=== PATIENT | male | born 1945 | race Caucasian/White ===

== ENCOUNTER 2016-12-01 02:33 | Observation (INO) ==
[2016-12-01] MEDS ORDERED: Ipratropium/Albuterol Neb 3 ML IH ONE ×2 (03:33→09:46)
--- NOTE | 2016-12-01 03:34 | Emergency Department Note ---
Disposition Clinical Impression: Pneumonia Qualifiers: Pneumonia type: due to unspecified organism Laterality: right Lung location: middle lobe of lung Qualified Code(s): J18.1 - Lobar pneumonia, unspecified organism Sepsis Qualifiers: Sepsis type: sepsis due to unspecified organism Qualified Code(s): A41.9 - Sepsis, unspecified organism Disposition: Admitted As Inpatient Condition: Good Time of Disposition: 06:13 SOB HPI - General Chief Complaint: ED Upper Respiratory Infection Stated Complaint: COUGH Time Seen by Provider: 12/01/16 03:14 Source: patient, family Mode of arrival: ambulatory Limitations: no limitations Nursing Notes Reviewed: Yes Vital Signs Reviewed: Yes - History of Present Illness 71-year-old male with past medical history of hypertension and diabetes presents with abrupt onset of cough and fever over the last 8 hours. His is sick with similar symptoms. This is associated with shortness of breath, nausea, body aches, and malaise. He has subjective fever and chills. He been hospitalized. He does not reside in prison. He denies any confusion, headache, stiff neck, chest pain, abdominal pain, change in urination or bowel movement, rashes or edema. - Related Data Home Medications Medication Instructions Recorded Confirmed Amlodipine Besylate 10 mg PO DAILY 09/22/16 12/01/16 Aspirin 81 mg PO DAILY 09/22/16 12/01/16 Atenolol 100 mg PO DAILY 09/22/16 12/01/16 Diazepam [Valium] 2.5 - 5 mg PO DAILY PRN 09/22/16 12/01/16 Finasteride [Proscar] 5 mg PO DAILY 09/22/16 12/01/16 Folic Acid/Multivit-Min/Lutein 1 tab PO DAILY 09/22/16 12/01/16 [Centrum Silver Chewable Tablet] Hydrochlorothiazide 25 mg PO DAILY 09/22/16 12/01/16 Omeprazole [PriLOSEC] 20 mg PO DAILY 09/22/16 12/01/16 Pravastatin Sodium [Pravachol] 40 mg PO DAILY 09/22/16 12/01/16 Ropinirole [Requip] 1 mg PO HS 09/22/16 12/01/16 Previous Rx's Medication Instructions Recorded Benzonatate [Tessalon] 200 mg PO TID PRN #60 capsule 02/27/17 GuaiFENesin ER [Mucinex] 1,200 mg PO BID #120 tbbp.12hr 12/04/16 GuaiFENesin/Codeine [ROBITUSSIN 10 ml PO Q6HR PRN #200 ml 12/04/16 w/CODEINE] Ipratropium/Albuterol Neb [Duoneb] 3 ml IH [id number] #100 inhsol 12/04/16 Levofloxacin [Levaquin] 750 mg PO DAILY #5 tablet 12/04/16 Metformin [Glucophage] 500 mg PO BID #0 12/04/16 Allergies Allergy/AdvReac Type Severity Reaction Status Date / Time lisinopril AdvReac Cough Verified 12/01/16 02:37 losartan AdvReac Cough Verified 12/01/16 02:37 All systems ED: reviewed and negative except as stated. Past Medical History - Past Medical History Attestation: Yes The following information was validated with the patient. Source: patient Medical history: Reports: arthritis, diabetes, GERD, hyperlipidemia, hypertension Surgical history: Reports: orthopedic, other, other Psychiatric history: Reports: no psych history - Social History Smoking Status: Never smoker Alcohol use: Reports: none Drug use: Reports: none Physical Exam - Head Head exam: atraumatic, normocephalic, normal inspection - Eye Eye exam: Present: normal appearance, PERRL, EOMI - ENT ENT exam: normal exam, normal oropharynx, mucous membranes moist - Neck Neck exam: Present: normal inspection, full ROM, trachea midline - Chest Chest inspection: Present: normal inspection, symmetric chest wall rise - Respiratory There is mild in the extremities bilaterally. There are rales at the right base Cardiovascular Cardiovascular exam: Present: regular rate, normal rhythm, normal heart sounds - Abdominal Exam Abdominal exam: Present: soft, Non-Tender. Absent: tenderness, distention, guarding, rebound, rigidity - Extremities Exam Extremities exam: Present: normal inspection, full ROM - Expanded Lower Extremity Exam Hip/Pelvis exam: Present: normal inspection, full ROM - Back Exam Back exam: Present: normal inspection, full ROM. Absent: tenderness, CVA tenderness (R), CVA tenderness (L) - Neurological Exam Neurological exam: Present: alert, oriented X3, CN II-XII intact - Psychiatric Psychiatric exam: Present: normal affect, normal mood - Skin Skin exam: Present: warm, dry, intact, normal color - General Limitations: no limitations General appearance: alert, in no apparent distress Course - Reevaluation(s) Reevaluation #1: Patient had right lower lobe possible infiltrate on chest x-ray. We obtained labs which were essentially normal without acidosis, lactic acidosis, or leukocytosis. Patient was feeling well and requests to go home. On my reassessment his oxygen saturation was 93% and respiratory rate was 16. We ambulated the patient to see how he would do and he became hypoxic to 81% after ambulating about 30 feet in the emergency department. He had mild shortness of breath without chest pain with that. Given that he meets SIRS criteria and has pneumonia he is receiving 20 mL/kg IVF and Levaquin and Rocephin for antibiotics. Reevaluation #2: Accepted by Dr. Prakash to hospitalist. Time: 06:12 Vital Signs Temperature 101.3 F H 12/01/16 02:34 Pulse Rate 67 12/01/16 02:34 Respiratory Rate 20 12/01/16 02:34 Blood Pressure 133/61 12/01/16 02:34 O2 Sat by Pulse Oximetry 93 L 12/01/16 02:34 Temperature 97.4 F L 12/04/16 11:00 Pulse Rate 54 12/04/16 11:00 Respiratory Rate 18 12/04/16 11:47 Blood Pressure 128/77 12/04/16 11:00 O2 Sat by Pulse Oximetry 96 12/04/16 11:47 Oxygen Delivery Oxygen Delivery Nasal Cannula Shortness of Breath/Dyspnea - Lab Data Result diagrams: 12/04/16 05:33 12/04/16 05:33 Lab Results 12/01/16 12/01/16 12/01/16 Range/Units 05:06 05:06 05:06 WBC 10.0 (4.3-11.1) K/mcL RBC 4.63 (4.19-5.50) M/mcL Hgb 12.5 L (12.9-16.9) g/dL Hct 37.9 (37.5-50.1) % MCV 81.9 L (83.0-100.0) fL MCH 27.0 L (28.0-33.3) pg MCHC 33.0 (31.6-35.5) g/dL RDW 13.5 (11.5-14.5) % Plt Count 116 L (140-400) K/mcL MPV 10.5 (9.4-12.4) fL Immature Gran % 0.5 (0-4) % Seg Neutrophils % 88.0 % Lymphocytes % 5.1 % Monocytes % 6.2 % Eosinophils % 0.1 % Basophils % 0.1 % Neutrophils # 8.8 (1.6-8.9) K/mcL Lymphocytes # 0.5 L (0.6-4.6) K/mcL Monocytes # 0.6 (0.0-1.3) K/mcL Eosinophils # 0.0 (0.0-0.6) K/mcL Basophils # 0.0 (0.0-0.2) K/mcL VBG pH (7.32-7.42) pH Units VBG pCO2 (41-51) mmHg VBG pO2 (25-40) mmHg VBG HCO3 (21-27) mEq/L Sodium 137 (136-145) mEq/L Potassium 3.7 (3.5-4.5) mEq/L Chloride 103 (98-109) mEq/L Carbon Dioxide 22 (19-29) mEq/L BUN 22 (8-26) mg/dL Creatinine 1.11 (0.72-1.25) mg/dL Est GFR ( Amer) > 60 (> 60) Est GFR (Non-Af Amer) > 60 (> 60) BUN/Creatinine Ratio 20 (6-26) Glucose 129 H (70-99) mg/dL POC Glucose (58-89) Est Mean Plasma Glucose mg/dl Hemoglobin A1c ( - 5.6) % Calculated Osmolality 289 (280-300) Lactic Acid 1.7 (0.5-2.2) mmol/L Calcium 9.1 (8.6-10.8) mg/dL 12/01/16 12/01/16 12/01/16 Range/Units 05:06 05:06 07:29 WBC (4.3-11.1) K/mcL RBC (4.19-5.50) M/mcL Hgb (12.9-16.9) g/dL Hct (37.5-50.1) % MCV (83.0-100.0) fL MCH (28.0-33.3) pg MCHC (31.6-35.5) g/dL RDW (11.5-14.5) % Plt Count (140-400) K/mcL MPV (9.4-12.4) fL Immature Gran % (0-4) % Seg Neutrophils % % Lymphocytes % % Monocytes % % Eosinophils % % Basophils % % Neutrophils # (1.6-8.9) K/mcL Lymphocytes # (0.6-4.6) K/mcL Monocytes # (0.0-1.3) K/mcL Eosinophils # (0.0-0.6) K/mcL Basophils # (0.0-0.2) K/mcL VBG pH 7.44 H (7.32-7.42) pH Units VBG pCO2 41 (41-51) mmHg VBG pO2 55 H (25-40) mmHg VBG HCO3 27.8 H (21-27) mEq/L Sodium (136-145) mEq/L Potassium (3.5-4.5) mEq/L Chloride (98-109) mEq/L Carbon Dioxide (19-29) mEq/L BUN (8-26) mg/dL Creatinine (0.72-1.25) mg/dL Est GFR ( Amer) (> 60) Est GFR (Non-Af Amer) (> 60) BUN/Creatinine Ratio (6-26) Glucose (70-99) mg/dL POC Glucose 135 H (58-89) Est Mean Plasma Glucose 120 mg/dl Hemoglobin A1c 5.8 H ( - 5.6) % Calculated Osmolality (280-300) Lactic Acid (0.5-2.2) mmol/L Calcium (8.6-10.8) mg/dL Attestation Statement - Attestation Attestation: I examined this patient and my medical decision-making was reviewed with the Resident Physician. I agree with the documented findings, disposition and treatment plan as described except to the extent set forth below. PORT Class III but hypoxic with walking. Does not appear toxic but admission indicated.
[2016-12-01] MEDS ORDERED: Ondansetron ODT 4 MG TAB.RAPDIS SL ONE (04:14)
[2016-12-01] MEDS ORDERED: 0.9 % Sodium Chloride 1,000 ML IV ONE (04:42)
[2016-12-01 05:16] LABS: VBG HCO3 27.8 mEq/L (21-27); VBG PH 7.44 pH Units (7.32-7.42)
[2016-12-01 05:17] LABS: Basophils % 0.1 %; Eosinophils % 0.1 %; Hematocrit 37.9 % (37.5-50.1); Hemoglobin 12.5 g/dL (12.9-16.9); Immature Granulocytes % 0.5 % (0-4); Lymphocytes # 0.5 K/mcL (0.6-4.6); Lymphocytes % 5.1 %; Mean Corpuscular Volume 81.9 fL (83.0-100.0); Mean Platelet Volume 10.5 fL (9.4-12.4); Monocytes # 0.6 K/mcL (0.0-1.3); Monocytes % 6.2 %; Neutrophils # 8.8 K/mcL (1.6-8.9); Platelet Count 116 K/mcL (140-400); Red Blood Count 4.63 M/mcL (4.19-5.50); Red Cell Distribution Width 13.5 % (11.5-14.5)
[2016-12-01 05:28] LABS: BUN/Creatinine Ratio 20 (6-26); Blood Urea Nitrogen 22 mg/dL (8-26); Calcium 9.1 mg/dL (8.6-10.8); Carbon Dioxide 22 mEq/L (19-29); Chloride 103 mEq/L (98-109); Glucose 129 mg/dL (70-99); Osmolality,Calculated 289 (280-300); Potassium 3.7 mEq/L (3.5-4.5); Sodium 137 mEq/L (136-145); eGFR For African Americans > 60 (> 60); eGFR For Non-African Americans > 60 (> 60)
[2016-12-01] MEDS ORDERED: SODIUM CHLORIDE IV ONE (05:56)
[2016-12-01] MEDS ORDERED: Levofloxacin 750 MG/150 ML 750 MG/150 ML BAG IVPB SCH ×2 (06:04→09:00)
[2016-12-01] MEDS ORDERED: Levofloxacin 750 MG/150 ML 750 MG/150 ML BAG IVPB ONE (06:15)
[2016-12-01] MEDS ORDERED: Acetaminophen 325 MG TABLET PO PRN (08:54)
[2016-12-01] MEDS ORDERED: Ondansetron 4 MG/2 ML VIAL IVP PRN (08:54)
[2016-12-01] MEDS ORDERED: Mag Hydrox/Al Hydrox/Simeth 30 ML UDC PO PRN (08:54)
[2016-12-01] MEDS ORDERED: Naloxone 0.4 MG/ML INJ IVP PRN (08:54)
[2016-12-01] MEDS ORDERED: *HR* HYDROcodone/Acet 5/325 mg TABLET PO PRN (08:54)
[2016-12-01] MEDS ORDERED: MOM Conc 10 ML UD.LIQ PO PRN (08:54)
[2016-12-01] MEDS ORDERED: Dextrose Gel 15 GM PO PRN ×2 (09:00)
[2016-12-01] MEDS ORDERED: D5% in Water 1,000 ML IV PRN (09:00)
[2016-12-01] MEDS ORDERED: *HR* Dextrose 50 % in Water (Syg) 50 ML SYRINGE IVP PRN (09:00)
[2016-12-01 09:51] LABS: Hemoglobin A1C 5.8 %
[2016-12-01] MEDS: GuaiFENesin/Codeine Oral Soln 5 ML UDC PO PRN ×2 (10:13→17:41)
[2016-12-01] MEDS: Ipratropium/Albuterol Neb 3 ML IH SCH ×4 (11:27→22:52)
[2016-12-01] MEDS: Insulin LISPRO 300 UNITS/3 ML VIAL SQ SCH ×3 (12:14→21:51)
[2016-12-01] MEDS ORDERED: Benzonatate 100 MG CAPSULE PO PRN (12:20)
[2016-12-01] MEDS ORDERED: diazePAM 5 MG TABLET PO PRN (12:25)
[2016-12-01] MEDS: Multivit/Ca/Min/Fe/FA 1 TAB TABLET PO SCH (14:45)
[2016-12-01] MEDS: Aspirin 81 MG TAB.CHEW PO SCH (14:45)
[2016-12-01] MEDS: Finasteride 5 MG TABLET PO SCH (14:45)
[2016-12-01] MEDS: *HR* Heparin 5,000 UNIT/ML VIAL SQ SCH ×2 (14:46→21:54)
--- NOTE | 2016-12-01 17:04 | Electrocardiograph Report ---
[place] [id number] Test Date: 2016-12-01 Pat Name: Larry Webb Department: 104 Room: [facility] Gender: M Sql Tech: : [id number] Requested By: Taiwo Schilling Order Number: [id number] Reading MD: Leslee Doe Measurements Intervals [place] Rate: 67 P: 0 NM: 148 QRS: 9 QRSD: 104 T: 7 QT: 383 QTc: 398 Interpretive Statements SINUS RHYTHM Electronically Signed On 12-01-2016 17:02:54 EST by Leslee Doe
--- NOTE | 2016-12-01 17:31 | Internal Med History&Physical ---
Date of Encounter: 12/01/16 Time of Encounter: 09:00 Assessment and Plan (1) Acute respiratory failure with hypoxia Current visit: Yes Status: Acute Pt requiring 4 liters of oxygen at this time. Will wean oxygen as able. (2) Pneumonia Current visit: Yes Status: Acute Pt with xray changes of pneumonia on R side. He is coughing significant sputum and there are gram positive cocci on gram stain. Pneumonia is lobar in nature. Admit to med tele Oxygen, IV abx, aerosols, steroids and supportive care Cough suppressants Wean oxygen as able. Qualifiers: Pneumonia type: due to unspecified organism Laterality: right Lung location: middle lobe of lung Qualified Code(s): J18.1 - Lobar pneumonia, unspecified organism (3) Hemoptysis Current visit: Yes Status: Acute Most likely related to pneumonia and coughing. Monitor symptoms and hemoglobin. (4) Diabetes Current visit: Yes Status: Chronic Accuchecks and coverage ordered. HgbA1C is 5.8% Qualifiers: Diabetes mellitus type: type 2 Diabetes mellitus complication status: without complication Diabetes mellitus terminal block assembler insulin use: without terminal block assembler use Qualified Code(s): E11.9 - Type 2 diabetes mellitus without complications (5) Hypertension Current visit: Yes Status: Chronic Continue home medications. BP controlled at this point. Qualifiers: Hypertension type: essential hypertension Qualified Code(s): I10 - Essential (primary) hypertension (6) Hyperlipidemia Current visit: Yes Status: Chronic Continue home medications Qualifiers: Hyperlipidemia type: mixed hyperlipidemia Qualified Code(s): E78.2 - Mixed hyperlipidemia Internal Medicine - H&P: HPI Chief complaint: Cough Admitted From: Home Plans for Post Hospital Care: Home History of present illness: Mr. Webb is a 71 year old male with history of HTN and noninsulin requiring DM presented to ED with complaints of cough and dyspnea. Symptoms started around 8PM last night but he has had symptoms off and on since September. Cough is worse with lying down but is not much better sitting up. He has difficulty speaking due to cough and chest congestion. Nothing he has taken has made it better. In September he had similar symptoms [facility]. He denies any other associated symptoms including diarrhea, abd pain, chest pain or urinary symptoms. His has had a cough but not as bad. He has had fever but not taken. Past Med Surg Social Fam HX - Past Medical History Attestation: Yes The following information was validated with the patient. Source: patient Medical history: arthritis, diabetes, GERD, hyperlipidemia, hypertension Psychiatric history: anxiety - Past Surgical History Surgical History: orthopedic, other, other (Nose surgery) - Social History Smoking Status: Former smoker Alcohol use: none Drug use: none Occupational status: retired Current living situation: Home - Independent Activity Level: Independent ambulation Recent Out of Country Travel Within the Last 8 Weeks: No Exposure or Possible Exposure to Illness During Travel: No - Family History Mother Living Status: Hx Family Cardiac Disorders: Yes (HTN) Internal Medicine - H&P: Meds Amlodipine Besylate 10 mg PO DAILY 09/22/16 [History] Aspirin 81 mg PO DAILY 09/22/16 [History] Atenolol 100 mg PO DAILY 09/22/16 [History] Diazepam [Valium] 2.5 - 5 mg PO DAILY PRN 09/22/16 [History] Finasteride [Proscar] 5 mg PO DAILY 09/22/16 [History] Folic Acid/Multivit-Min/Lutein [Centrum Silver Chewable Tablet] 1 tab PO DAILY 09/22/16 [History] Hydrochlorothiazide 25 mg PO DAILY 09/22/16 [History] Metformin [Glucophage] 500 mg PO BID 09/22/16 [History] Omeprazole [PriLOSEC] 20 mg PO DAILY 09/22/16 [History] Pravastatin Sodium [Pravachol] 40 mg PO DAILY 09/22/16 [History] Ropinirole [Requip] 1 mg PO HS 09/22/16 [History] Allergies lisinopril Adverse Reaction (Verified 12/01/16 02:37) Cough losartan Adverse Reaction (Verified 12/01/16 02:37) Cough All Systems PM: A 10-system review of systems was performed and is negative for pertinent findings except as documented above in the HPI. - Constitutional Constitutional: fever(s), weakness, no chills - EENT Eyes: no change in vision, no dry eye Ears: decreased hearing Nose, mouth and throat: change in voice, nasal congestion - Breasts Breasts: no mass - Cardiovascular Cardiovascular ROS IM: dyspnea, dyspnea on exertion, no chest pain, no orthopnea - Respiratory Respiratory: cough, hemoptysis, wheezing, chest congestion, excessive phlegm production - Gastrointestinal Gastrointestinal: no abdominal pain, no cramping, no diarrhea - Genitourinary Genitourinary ROS male: no difficulty urinating, no nocturia - Musculoskeletal Musculoskeletal ROS IM: no joint swelling, no muscle cramps - Integumentary Integumentary IM: no erythema, no rash - Neurological Neurological ROS: no abnormal gait, no abnormal speech, no paresthesias - Psychiatric Psychiatric: no auditory hallucinations, no visual hallucinations - Endocrine Endocrine IM: no cold intolerance, no excessive sweating - Hematologic/Lymphatic Hematologic/Lymphatic: no easy bleeding - Allergic/Immunologic Allergic/Immunologic: no tongue swelling, no itchy eyes - Constitutional Vitals: Temp Pulse Resp BP Pulse Ox 98.8 F 57 18 112/64 94 L 12/01/16 15:00 12/01/16 15:00 12/01/16 16:09 12/01/16 15:00 12/01/16 16:09 General appearance: Present: A&O X 3, pleasant, answers questions appropriately Exam: Coughing a lot and moderate distress due to congestion. - Head Head exam: Present: atraumatic, normocephalic - Eye Eye exam: Present: EOMI, PERRL, conjuntiva pink - ENT ENT exam: Present: mucous membranes moist, normal external ear exam - Neck Neck exam general surgery: Present: supple, trachea midline. Absent: lymphadenopathy - Respiratory Respiratory exam: Present: rales, rhonchi, wheezes Additional comments: Significant chest congestion- especially upper airway - Cardiovascular Cardiovascular exam: Present: RRR. Absent: systolic murmur, tachycardia - GI/Abdominal GI/Abdominal exam: Present: soft. Absent: mass, tenderness - Extremities Exam Extremities exam: Present: full ROM, pedal edema, warm. Absent: joint swelling , tenderness - Neurological Exam Neurological exam: Present: alert, normal gait, oriented X3, no focal deficits - Psychiatric Psychiatric exam: Present: normal affect, normal mood - Skin Skin exam: Present: dry, normal color, warm. Absent: rash Internal Med - H&P Results - Labs CBC & Chem 7: 12/01/16 05:06 12/01/16 05:06
[2016-12-01] MEDS: MethylPREDNISolone 40 MG/ML VIAL IVP SCH ×2 (17:41→23:59)
[2016-12-01] MEDS: rOPINIRole 1 MG TABLET PO SCH (21:53)
[2016-12-02] MEDS: Ipratropium/Albuterol Neb 3 ML IH SCH ×6 (03:58→23:12)
[2016-12-02 07:24] LABS: Hematocrit 33.6 % (37.5-50.1); Hemoglobin 11.1 g/dL (12.9-16.9); Mean Corpuscular Hemoglobin 27.8 pg (28.0-33.3); Platelet Count 104 K/mcL (140-400); Red Cell Distribution Width 13.7 % (11.5-14.5)
[2016-12-02 07:41] LABS: Alanine Aminotransferase 33 Units/L (0-55); Albumin 2.6 g/dL (3.5-5.0); Albumin/Globulin Ratio 0.7 (1.1-2.2); Alkaline Phosphatase 79 Units/L (38-126); Aspartate Amino Transferase 37 Units/L (5-34); BUN/Creatinine Ratio 22 (6-26); Bilirubin,Total 0.4 mg/dL (0.2-1.2); Blood Urea Nitrogen 22 mg/dL (8-26); Calcium 8.5 mg/dL (8.6-10.8); Carbon Dioxide 22 mEq/L (19-29); Chloride 103 mEq/L (98-109); Globulin 3.9 g/dL (2.4-3.5); Glucose 219 mg/dL (70-99); Magnesium 1.4 mg/dL (1.6-2.6); Osmolality,Calculated 294 (280-300); Potassium 4.2 mEq/L (3.5-4.5); Sodium 137 mEq/L (136-145); Total Protein 6.5 g/dL (6.0-8.3); eGFR For African Americans > 60 (> 60); eGFR For Non-African Americans > 60 (> 60)
[2016-12-02 08:01] LABS: Lymphocytes # 0.4 K/mcL (0.6-4.6); Monocytes # 0.1 K/mcL (0.0-1.3); Neutrophils # 10.7 K/mcL (1.6-8.9); Platelet Estimate Decreased (Normal)
[2016-12-02] MEDS ORDERED: Magnesium Sulfate 2 GM in D5% in Water 100 ML IV ONE (08:43)
[2016-12-02] MEDS: amLODIPine 5 MG TABLET PO SCH (08:57)
[2016-12-02] MEDS: Multivit/Ca/Min/Fe/FA 1 TAB TABLET PO SCH (08:57)
[2016-12-02] MEDS: Levofloxacin 750 MG/150 ML 750 MG/150 ML BAG IVPB SCH (08:58)
[2016-12-02] MEDS: Finasteride 5 MG TABLET PO SCH (08:58)
[2016-12-02] MEDS: Aspirin 81 MG TAB.CHEW PO SCH (08:58)
[2016-12-02] MEDS: MethylPREDNISolone 40 MG/ML VIAL IVP SCH ×3 (09:00→20:49)
[2016-12-02] MEDS: Insulin LISPRO 300 UNITS/3 ML VIAL SQ SCH ×4 (09:00→22:37)
--- NOTE | 2016-12-02 09:28 | Internal Med Progress Note ---
Date of Encounter: 12/02/16 Time of Encounter: 09:15 - Assessment and plan (1) Acute respiratory failure with hypoxia Current Visit: Yes Status: Acute Assessment and plan: Continues to require oxygen supplementation at rest. Will continue to wean as able today. Echocardiogram results pending. (2) Pneumonia Current Visit: Yes Status: Acute Assessment and plan: Sputum culture pending but gram stain shows gram positive cocci. He has been treated twice as an outpatient. Currently on IV Levaquin, steroids, aerosols, cough suppressants. Will decrease steroid dose today and continue other treatment as currently ordered. Blood cx negative thus far. Hopefully he will be improved enough for discharge in next 1-2 days. Qualifiers: Pneumonia type: due to unspecified organism Laterality: right Lung location: middle lobe of lung Qualified Code(s): J18.1 - Lobar pneumonia, unspecified organism (3) Hemoptysis Current Visit: Yes Status: Acute Assessment and plan: Continues to have scant amount of hemoptysis today. Will check CT with contrast to evaluated pneumonia (especially since this has been a recurrent issue since last September). He is on subqu heparin for DVT prophylaxis but has not had worsening bleeding and H/H stable. (4) Diabetes Current Visit: Yes Status: Chronic Assessment and plan: Blood sugar elevated due to steroids now. Continue coverage. Metformin on hold and will need to be held for [address] today (contrast ordered). Qualifiers: Diabetes mellitus type: type 2 Diabetes mellitus complication status: without complication Diabetes mellitus fdc insulin use: without intermodal customer service use Qualified Code(s): E11.9 - Type 2 diabetes mellitus without complications (5) Hypertension Current Visit: Yes Status: Chronic Assessment and plan: Appears to be stable and controlled on current meds. Qualifiers: Hypertension type: essential hypertension Qualified Code(s): I10 - Essential (primary) hypertension (6) Hyperlipidemia Current Visit: Yes Status: Chronic Assessment and plan: Continuing home meds for now. Qualifiers: Hyperlipidemia type: mixed hyperlipidemia Qualified Code(s): E78.2 - Mixed hyperlipidemia - Subjective Interval history: Mr. Webb is currently admitted for acute hypoxic resp failure due to acute pneumonia. He remains moderate to high risk due to potential for worsening respiratory status and infection. Mr. Webb continues to have some hemoptysis. He was able to [place] in [place]. He is still coughing quite a bit and is still requiring oxygen. Cough suppressants have helped some and allowed him to rest better last night. He is on IV abx at this time and IV steroids as well as frequent aerosols. - Constitutional Vitals: Temp Pulse Resp BP Pulse Ox 97.4 F L 59 18 138/71 95 12/02/16 07:22 12/02/16 07:22 12/02/16 07:22 12/02/16 07:22 12/02/16 07:22 General appearance: Present: A&O X 3, pleasant, answers questions appropriately - Head Head exam: Present: normocephalic - Eye Eye exam: Present: EOMI, conjuntiva pink - ENT ENT exam: Present: mucous membranes moist - Respiratory Respiratory exam: Present: rales, rhonchi. Absent: wheezes Additional comments: Continues with moist cough though has decreased some. Bibasilar rales noted on exam with some upper airway rhonchi. No wheeze at this time. - Cardiovascular Cardiovascular exam: Present: RRR. Absent: systolic murmur, tachycardia - GI/Abdominal GI/Abdominal exam: Present: normal bowel sounds, soft. Absent: tenderness - Extremities Exam Extremities exam: Present: pedal edema, warm. Absent: tenderness Additional comments: Trace edema noted. - Neurological Exam Neurological exam: Present: alert, oriented X3, no focal deficits - Psychiatric Psychiatric exam: Present: normal affect, normal mood - Skin Skin exam: Present: dry, warm. Absent: rash Internal Medicine: Result - Labs CBC & Chem 7: 12/02/16 06:31 12/02/16 06:31 Labs: Short CBC 12/02/16 Range/Units 06:31 WBC 11.5 H (4.3-11.1) K/mcL Hgb 11.1 L (12.9-16.9) g/dL Hct 33.6 L (37.5-50.1) % Plt Count 104 L (140-400) K/mcL Neutrophils # 10.7 H (1.6-8.9) K/mcL BMP 12/02/16 06:31 Sodium 137 Potassium 4.2 Chloride 103 Carbon Dioxide 22 BUN 22 Creatinine 0.99 Glucose 219 H Calcium 8.5 L Liver Function 12/02/16 Range/Units 06:31 Total Bilirubin 0.4 (0.2-1.2) mg/dL AST 37 H (5-34) Units/L ALT 33 (0-55) Units/L Alkaline Phosphatase 79 (38-126) Units/L Albumin 2.6 L (3.5-5.0) g/dL 29% bands today and metamyelocytes. Decreased platelets. Consult Discharge Plan - Plan Referrals: Leslee Crockett MD [Primary Care Provider] -
[2016-12-02] MEDS: *HR* Heparin 5,000 UNIT/ML VIAL SQ SCH ×3 (09:29→23:01)
--- NOTE | 2016-12-02 10:38 | ECHO - Doppler Report ---
Echocardiogram Name: Larry Webb Date of Study: 12/01/2016 Date: 1945 Ht: 72.0 in Medical Record#: [id number] Age: 71 Wt: 225.0 lb Gender: Male BSA: 2.24 Order #: [id number] Location: [facility] Room #: [id number] Reading Physician: Thiago Mott MD, [facility] [employer] Machine Helper: Lily Cannon RDCS Ordering Physician: Nabor Rubio DO Primary Physician: Leslee Crockett MD Indications: Edema, Cough Impressions: LVEF 55-60%. Indeterminate diastolic function. No significant valvular dysfunction. Left Ventricular Wall Motion: Rest Echo Findings All wall segments showed normal motion. Findings: Study Quality * Technically adequate exam. Right Ventricle * Normal right ventricular structure and function. Right Atrium * Normal right atrial size. Aortic Valve * Trileaflet aortic valve with normal function. Mitral Valve * Mild mitral regurgitation. * No mitral stenosis. * Normal mitral valve structure. Aorta * Normally sized aortic root. Pericardium * The pericardium appears normal. ECG Findings * Normal sinus rhythm. Tricuspid Valve * No tricuspid stenosis. * Trace tricuspid regurgitation. * Estimated RVSP is 23-30 mmHg. Left Atrium * Mildly dilated left atrium. Left Ventricle * LVEF 55-60%. * Indeterminate diastolic function. Pulmonic Valve * No pulmonic stenosis. * Trace pulmonic regurgitation. IVC * The IVC is not well evaluated. Interatrial Septum * Interatrial septum not well evaluated. History Hypertension Diabetes Hypercholesteremia Measurements: BP: 112/ 64 2D Normal Values RVIDd: 3.22 cm <2.7 cm IVSd: 1.03 cm 0.6 - 1.0 cm LVIDd: 5.91 cm 3.7 - 5.6 cm LVPWd: 1.06 cm 0.6 - 1.1 cm LVIDs: 3.10 cm 1.5 - 3.6 cm AO: 3.00 cm < 4.0 cm LA: 4.10 cm 2.0 - 4.0cm %FS: 47.50 cm >25 % LA volume: 67 Mitral Valve Peak E:.99 m/sec Peak A:.95 m/sec E/A Ratio:1 Tricuspid Valve TV Regurg Peak Grad: 23.00mmHg TV Regurg Peak Semaj: 2.39m/sec Updated by Thiago Mott MD, [facility] on 12/02/2016 10:32:18 AM electronically signed on 12/02/2016 10:34:23 AM with status of Final Wall Motion Waite: 1=Normal, 2=Hypokinesis, 3=Akinesis, 4=Dyskinesis, 5=Aneurysmal, 6=Hyperkinetic, X=Not Visualized (Blank)=Missing
[2016-12-02] MEDS: rOPINIRole 1 MG TABLET PO SCH (20:12)
[2016-12-03] MEDS: Ipratropium/Albuterol Neb 3 ML IH SCH ×5 (04:57→21:14)
[2016-12-03] MEDS: *HR* Heparin 5,000 UNIT/ML VIAL SQ SCH (06:13)
[2016-12-03 06:40] LABS: Basophils % 0.1 %; Hematocrit 33.2 % (37.5-50.1); Hemoglobin 10.7 g/dL (12.9-16.9); Lymphocytes # 0.6 K/mcL (0.6-4.6); Lymphocytes % 6.1 %; Mean Corpuscular HGB Conc 32.2 g/dL (31.6-35.5); Mean Corpuscular Volume 83.6 fL (83.0-100.0); Mean Platelet Volume 10.8 fL (9.4-12.4); Monocytes # 0.4 K/mcL (0.0-1.3); Monocytes % 3.8 %; Neutrophils # 7.7 K/mcL (1.6-8.9); Platelet Count 130 K/mcL (140-400); Red Blood Count 3.97 M/mcL (4.19-5.50); Red Cell Distribution Width 13.8 % (11.5-14.5)
[2016-12-03 07:02] LABS: BUN/Creatinine Ratio 30 (6-26); Blood Urea Nitrogen 28 mg/dL (8-26); Calcium 8.4 mg/dL (8.6-10.8); Carbon Dioxide 25 mEq/L (19-29); Chloride 105 mEq/L (98-109); Glucose 270 mg/dL (70-99); Magnesium 1.8 mg/dL (1.6-2.6); Osmolality,Calculated 299 (280-300); Potassium 4.2 mEq/L (3.5-4.5); Sodium 137 mEq/L (136-145); eGFR For African Americans > 60 (> 60); eGFR For Non-African Americans > 60 (> 60)
[2016-12-03 07:13] LABS: Platelet Estimate Normal (Normal); Polychromasia 1+ (Not Present)
[2016-12-03] MEDS: Finasteride 5 MG TABLET PO SCH (08:24)
[2016-12-03] MEDS: amLODIPine 5 MG TABLET PO SCH (08:25)
[2016-12-03] MEDS: Multivit/Ca/Min/Fe/FA 1 TAB TABLET PO SCH (08:25)
[2016-12-03] MEDS: Aspirin 81 MG TAB.CHEW PO SCH (08:26)
[2016-12-03] MEDS: Levofloxacin 750 MG/150 ML 750 MG/150 ML BAG IVPB SCH (08:26)
[2016-12-03] MEDS: MethylPREDNISolone 40 MG/ML VIAL IVP SCH (08:26)
[2016-12-03] MEDS: Insulin LISPRO 300 UNITS/3 ML VIAL SQ SCH ×4 (08:38→23:16)
--- NOTE | 2016-12-03 12:38 | Pulmonology Consult Note ---
Date of Encounter: 12/03/16 Time of Encounter: 10:00 Assessment and Plan (1) Abnormal CT scan, chest Current Visit: Yes Status: Acute The abnormal chest CT findings which include right lower lobe focal infiltrate are likely reflective of community-acquired pneumonia. However, the patient does not have other symptoms that would be highly correlated with pneumonia ( purulent sputum production, fever chills, leukocytosis). The patient has agreed to remain in the hospital to complete a course of IV antibiotic therapy. The other abnormal findings from review of the chest CT include mediastinal hilar adenopathy with calcification. 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 If the patient does not continue to improve, I would recommend chest CT with PE protocol to ensure that the patient does not have another explanation for pneumonia mimic [place] Code(s): R93.8 - Abnormal findings on diagnostic imaging of other specified body structures SNOMED Code(s): 177950543 History of Present Illness Consult date: 12/03/16 Chief complaint: Abnormal chest ct scan History of present illness: This 71-year-old male mild remote smoker was admitted to the hospital with complaints of intractable cough and intermittent hemoptysis. He relates his respiratory illness dating back to October 02 2016 at which time he noted severe cough and right-sided chest discomfort and breathlessness. At that time , he did expectorate discolored secretions but did not note blood. he sought evaluation with his outpatient [facility] physician, was thought to have a respiratory infectious illness received antibiotic therapy but did not note any substantial improvement. He returned to the [place] for another outpatient evaluation approximately 10-14 days after his initial evaluation was prescribed a second antibiotic and eventually improved after approximately a week. Subsequently, the patient believes that 10 days after the course of the second antibiotic his symptoms returned and at the time of symptom return he noted worsening of cough and mild chest discomfort and expectoration of bloody secretions. Hence, the patient sought evaluation and was admitted to the hospital. Since his admission to [facility], the patient has noted a significant improvement of his cough and his substantial reduction in expectoration of bloody secretions. He describes mild breathlessness with activity but notes absence of fevers chills or sweats. He is in essence a lifelong nonsmoker. He has no significant occupational respiratory exposures to silica. Past Med Surg Social Fam HX - Past Medical History Medical history: arthritis, diabetes, GERD, hyperlipidemia, hypertension Psychiatric history: anxiety - Past Surgical History Surgical History: orthopedic, other, other (Nose surgery) - Social History Smoking Status: Former smoker Alcohol use: none Drug use: none - Family History Mother Living Status: Hx Family Cardiac Disorders: Yes (HTN) Medications and Allergies Amlodipine Besylate 10 mg PO DAILY 09/22/16 [History] Aspirin 81 mg PO DAILY 09/22/16 [History] Atenolol 100 mg PO DAILY 09/22/16 [History] Diazepam [Valium] 2.5 - 5 mg PO DAILY PRN 09/22/16 [History] Finasteride [Proscar] 5 mg PO DAILY 09/22/16 [History] Folic Acid/Multivit-Min/Lutein [Centrum Silver Chewable Tablet] 1 tab PO DAILY 09/22/16 [History] Hydrochlorothiazide 25 mg PO DAILY 09/22/16 [History] Metformin [Glucophage] 500 mg PO BID 09/22/16 [History] Omeprazole [PriLOSEC] 20 mg PO DAILY 09/22/16 [History] Pravastatin Sodium [Pravachol] 40 mg PO DAILY 09/22/16 [History] Ropinirole [Requip] 1 mg PO HS 09/22/16 [History] Allergies lisinopril Adverse Reaction (Verified 12/01/16 02:37) Cough losartan Adverse Reaction (Verified 12/01/16 02:37) Cough All Systems: A 10-system review of systems was performed and is negative for pertinent findings except as documented above in the HPI. - Constitutional Constitutional: as per HPI - Respiratory Respiratory: as per HPI Physical Examination Vital Signs: Vital Signs, Last 4 Hours Temp Pulse Resp BP Pulse Ox 12/03/16 12:27 97.8 F 66 18 141/102 96 12/03/16 11:12 18 96 General appearance: no acute distress Eyes: nonicteric ENT: oropharynx moist Auscultation: right: rales Cardiovascular: regular rate and rhythm Extremities: no cyanosis Musculoskeletal: no deformities normal mental status Results - Laboratory Findings CBC and BMP: 12/03/16 06:01 12/03/16 06:01 Abnormal lab findings: Abnormal lab results RBC 3.97 M/mcL (4.19-5.50) L 12/03/16 06:01 Hgb 10.7 g/dL (12.9-16.9) L 12/03/16 06:01 Hct 33.2 % (37.5-50.1) L 12/03/16 06:01 MCH 27.0 pg (28.0-33.3) L 12/03/16 06:01 Plt Count 130 K/mcL (140-400) L 12/03/16 06:01 Immature Gran % 7.0 % (0-4) H 12/03/16 06:01 Band Neutrophils % 29.0 % (0-4) H 12/02/16 06:31 Metamyelocytes % 3.0 % (0) H 12/02/16 06:31 Polychromasia 1+ (Not Present) A 12/03/16 06:01 VBG pH 7.44 pH Units (7.32-7.42) H 12/01/16 05:06 VBG pO2 55 mmHg (25-40) H 12/01/16 05:06 VBG HCO3 27.8 mEq/L (21-27) H 12/01/16 05:06 BUN 28 mg/dL (8-26) H 12/03/16 06:01 BUN/Creatinine Ratio 30 (6-26) H 12/03/16 06:01 Glucose 270 mg/dL (70-99) H 12/03/16 06:01 POC Glucose 126 (58-89) H 12/02/16 12:07 Hemoglobin A1c 5.8 % (-5.6) H 12/01/16 05:06 Calcium 8.4 mg/dL (8.6-10.8) L 12/03/16 06:01 AST 37 Units/L (5-34) H 12/02/16 06:31 Albumin 2.6 g/dL (3.5-5.0) L 12/02/16 06:31 Globulin 3.9 g/dL (2.4-3.5) H 12/02/16 06:31 Albumin/Globulin Ratio 0.7 (1.1-2.2) L 12/02/16 06:31 - Microbiology Findings Microbiology Findings: Microbiology, Last 48 Hours 12/01/16 15:00 Sputum Culture - Final Sputum - Clinical Findings Intake & Output: Intake & Output 12/02/16 12/03/16 12/03/16 23:59 07:59 15:59 Intake Total 460 / 460 450 / 450 240 / 240 Balance 460 / 460 450 / 450 240 / 240 Weight 102.9 kg Consult Discharge Plan - Plan Referrals: Leslee Crockett MD [Primary Care Provider] -
--- NOTE | 2016-12-03 13:42 | Internal Med Progress Note ---
Date of Encounter: 12/03/16 Time of Encounter: 07:35 - Assessment and plan (1) Acute respiratory failure with hypoxia Current Visit: Yes Status: Acute Assessment and plan: Was able to be up and about without oxygen yesterday but wore oxygen during the night. Will do nighttime pulse ox study tonight. (2) Pneumonia Current Visit: Yes Status: Acute Assessment and plan: Sputum culture normal dylan. On IV Levaquin. CT shows RLL consolidation. Cough suppresssant. Aerosols, steroids and supportive care at this time. Qualifiers: Pneumonia type: due to unspecified organism Laterality: right Lung location: middle lobe of lung Qualified Code(s): J18.1 - Lobar pneumonia, unspecified organism (3) Hemoptysis Current Visit: Yes Status: Acute Assessment and plan: Had a larger volume of hemoptysis during the night. Most likely related to coughing/pneumonia. Will ask pulmonary for opinion as well today. (4) Diabetes Current Visit: Yes Status: Chronic Assessment and plan: Blood sugar elevated due to steroids now. Continue coverage. Metformin on hold and will need to be held for [address] today (contrast ordered). Will hopefully improve with decreasing steroids. Qualifiers: Diabetes mellitus type: type 2 Diabetes mellitus complication status: with hyperglycemia Diabetes mellitus assisted insulin use: without assisted use Qualified Code(s): E11.65 - Type 2 diabetes mellitus with hyperglycemia (5) Hypertension Current Visit: Yes Status: Chronic Assessment and plan: Controlled on current meds. Qualifiers: Hypertension type: essential hypertension Qualified Code(s): I10 - Essential (primary) hypertension (6) Hyperlipidemia Current Visit: Yes Status: Chronic Assessment and plan: Continuing home meds for now. Qualifiers: Hyperlipidemia type: mixed hyperlipidemia Qualified Code(s): E78.2 - Mixed hyperlipidemia - Subjective Interval history: Mr. Webb is currently admitted for acute hypoxic resp failure due to acute pneumonia. He remains moderate to high risk due to potential for worsening respiratory status and infection. Mr. Webb had more hemoptysis last night. He seemed to be coughing more during the night as well. Wearing oxygen when in bed but was able to be up and ambulate yesterday. No fever or chills. No significant pain. No new GI symptoms. Still continues to cough this AM. - Constitutional Vitals: Temp Pulse Resp BP Pulse Ox 97.8 F 66 18 141/102 96 12/03/16 12:27 12/03/16 12:27 12/03/16 12:27 12/03/16 12:27 12/03/16 12:27 General appearance: Present: A&O X 3, pleasant, answers questions appropriately - Head Head exam: Present: normocephalic - Eye Eye exam: Present: EOMI, conjuntiva pink - ENT ENT exam: Present: mucous membranes moist - Respiratory Respiratory exam: Present: decreased breath sounds, wheezes Additional comments: Diminished breath sounds R base. - Cardiovascular Cardiovascular exam: Present: RRR. Absent: systolic murmur, tachycardia - GI/Abdominal GI/Abdominal exam: Present: soft. Absent: tenderness - Extremities Exam Extremities exam: Present: warm. Absent: pedal edema - Neurological Exam Neurological exam: Present: alert, oriented X3, no focal deficits - Psychiatric Psychiatric exam: Present: normal affect, normal mood - Skin Skin exam: Present: dry, warm. Absent: rash Internal Medicine: Result - Labs CBC & Chem 7: 12/03/16 06:01 12/03/16 06:01 Labs: Short CBC 12/03/16 Range/Units 06:01 WBC 9.3 (4.3-11.1) K/mcL Hgb 10.7 L (12.9-16.9) g/dL Hct 33.2 L (37.5-50.1) % Plt Count 130 L (140-400) K/mcL Neutrophils # 7.7 (1.6-8.9) K/mcL BMP 12/03/16 06:01 Sodium 137 Potassium 4.2 Chloride 105 Carbon Dioxide 25 BUN 28 H Creatinine 0.93 Glucose 270 H Calcium 8.4 L - Impressions Impressions Chest CT 12/02/16 08:59 IMPRESSION: Findings consistent with right lower lobar pneumonia with air bronchograms, consolidation and ground-glass airspace disease. Recommend follow-up to resolution. Bulky supraclavicular, mediastinal and hilar lymphadenopathy, some of which are calcified and some of which are noncalcified. Many lymph nodes measure greater than 2 cm in short axis dimension. This may be secondary to granulomatous disease such as sarcoidosis or histoplasmosis. Metastatic disease cannot be completely excluded. Correlation with prior remote chest CTs to document stability would be helpful. Otherwise recommend chest CT follow-up in 3 months to evaluate for change. The findings were sent to the [facility] at 9:57 am on 12/02/2016to be communicated to a licensed caregiver. D/ / 12/02/2016 10:14:25 Jah Aldana MD / earnold Interpreting Provider: Jah Aldana MD Consult Discharge Plan - Plan Referrals: Leslee Crockett MD [Primary Care Provider] -
[2016-12-03] MEDS: rOPINIRole 1 MG TABLET PO SCH (20:06)
[2016-12-04] MEDS: Ipratropium/Albuterol Neb 3 ML IH SCH ×4 (04:48→11:47)
[2016-12-04 06:03] LABS: Hematocrit 34.1 % (37.5-50.1); Hemoglobin 10.9 g/dL (12.9-16.9); Mean Corpuscular Hemoglobin 26.8 pg (28.0-33.3); Mean Platelet Volume 10.1 fL (9.4-12.4); Platelet Count 150 K/mcL (140-400); Red Blood Count 4.06 M/mcL (4.19-5.50); Red Cell Distribution Width 14.2 % (11.5-14.5)
[2016-12-04 06:16] LABS: BUN/Creatinine Ratio 32 (6-26); Blood Urea Nitrogen 28 mg/dL (8-26); Calcium 8.4 mg/dL (8.6-10.8); Carbon Dioxide 23 mEq/L (19-29); Chloride 107 mEq/L (98-109); Glucose 246 mg/dL (70-99); Magnesium 1.8 mg/dL (1.6-2.6); Osmolality,Calculated 302 (280-300); Potassium 3.9 mEq/L (3.5-4.5); Sodium 139 mEq/L (136-145); eGFR For African Americans > 60 (> 60); eGFR For Non-African Americans > 60 (> 60)
[2016-12-04] MEDS: Levofloxacin 750 MG/150 ML 750 MG/150 ML BAG IVPB SCH (08:06)
[2016-12-04] MEDS: Finasteride 5 MG TABLET PO SCH (08:08)
[2016-12-04] MEDS: amLODIPine 5 MG TABLET PO SCH (08:08)
[2016-12-04] MEDS: Aspirin 81 MG TAB.CHEW PO SCH (08:08)
[2016-12-04] MEDS: Insulin LISPRO 300 UNITS/3 ML VIAL SQ SCH ×2 (08:09→12:12)
[2016-12-04] MEDS: Multivit/Ca/Min/Fe/FA 1 TAB TABLET PO SCH (08:09)
[2016-12-04 11:41] VITALS: BP 128/77
--- NOTE | 2016-12-04 12:50 | Discharge Summary ---
Date of Encounter: 12/04/16 Time of Encounter: 08:30 - Discharge Diagnosis (1) Acute respiratory failure with hypoxia Priority: Primary Status: Acute (2) Pneumonia Priority: Primary Status: Acute Qualifiers: Pneumonia type: due to unspecified organism Laterality: right Lung location: middle lobe of lung Qualified Code(s): J18.1 - Lobar pneumonia, unspecified organism (3) Hemoptysis Priority: Secondary Status: Acute (4) Diabetes Priority: Secondary Status: Chronic Qualifiers: Diabetes mellitus type: type 2 Diabetes mellitus complication status: with hyperglycemia Diabetes mellitus correction insulin use: without correction use Qualified Code(s): E11.65 - Type 2 diabetes mellitus with hyperglycemia (5) Hypertension Priority: Secondary Status: Chronic Qualifiers: Hypertension type: essential hypertension Qualified Code(s): I10 - Essential (primary) hypertension (6) Hyperlipidemia Priority: Secondary Status: Chronic Qualifiers: Hyperlipidemia type: mixed hyperlipidemia Qualified Code(s): E78.2 - Mixed hyperlipidemia - Discharge Medications Prescriptions: Ipratropium/Albuterol Neb [Duoneb] 3 ml IH [id number] #100 inhsol GuaiFENesin/Codeine [ROBITUSSIN w/CODEINE] 10 ml PO Q6HR PRN #200 ml PRN Reason: Cough Benzonatate [Tessalon] 200 mg PO TID PRN #60 capsule PRN Reason: Cough GuaiFENesin ER [Mucinex] 1,200 mg PO BID #120 tbbp.12hr Levofloxacin [Levaquin] 750 mg PO DAILY #5 tablet Home Medications: Amlodipine Besylate 10 mg PO DAILY 09/22/16 [History] Aspirin 81 mg PO DAILY 09/22/16 [History] Atenolol 100 mg PO DAILY 09/22/16 [History] Diazepam [Valium] 2.5 - 5 mg PO DAILY PRN 09/22/16 [History] Finasteride [Proscar] 5 mg PO DAILY 09/22/16 [History] Folic Acid/Multivit-Min/Lutein [Centrum Silver Chewable Tablet] 1 tab PO DAILY 09/22/16 [History] Hydrochlorothiazide 25 mg PO DAILY 09/22/16 [History] Omeprazole [PriLOSEC] 20 mg PO DAILY 09/22/16 [History] Pravastatin Sodium [Pravachol] 40 mg PO DAILY 09/22/16 [History] Ropinirole [Requip] 1 mg PO HS 09/22/16 [History] Benzonatate [Tessalon] 200 mg PO TID PRN #60 capsule 12/04/16 [Rx] GuaiFENesin ER [Mucinex] 1,200 mg PO BID #120 tbbp.12hr 12/04/16 [Rx] GuaiFENesin/Codeine [ROBITUSSIN w/CODEINE] 10 ml PO Q6HR PRN #200 ml 12/04/16 [ Rx] Ipratropium/Albuterol Neb [Duoneb] 3 ml IH [id number] #100 inhsol 12/04/16 [Rx] Levofloxacin [Levaquin] 750 mg PO DAILY #5 tablet 12/04/16 [Rx] Metformin [Glucophage] 500 mg PO BID #0 12/04/16 [Rx] Allergies/Adverse Reactions: Allergies lisinopril Adverse Reaction (Verified 12/01/16 02:37) Cough losartan Adverse Reaction (Verified 12/01/16 02:37) Cough Procedures/tests Complete & Pending: Procedures Performed prior 72 hours Category Date Time Status CT chest w con [CT] Routine Cat Scan 12/02/16 08:59 Completed - Notes to Outpatient Provider Needs to follow with pulmonary in 2 months and get repeat CT scan. If hemoptysis persists he is to see them in 2 weeks. Given script for nebulizer at discharge. Date of admission: 12/01/16 08:54 Primary care physician: Leslee Crockett MD Consults: 12/01/16 08:58 Consult to Nurse Navigator [CONS] Routine Comment: 12/03/16 08:07 Consult to Pulmonology [CONS] Routine Consulting Provider: [facility] [place] Reason for Consult: Hemoptysis, pneumonia Time Notified: 08:00 Call Completed: Yes Discharging clinician: Nabor Rubio Anticipated date of discharge: 12/04/16 - Patient Status Disposition: Home, Self-Care Condition: Good Functional capacity at discharge: independent ambulation Overall status at discharge: patient is progressing back to baseline - Discharge Instructions Instructions: Acute Respiratory Distress Syndrome (DC), Diabetes Mellitus Type 2 in Adults (DC), Sepsis (DC), Chronic Hypertension (DC), Pneumonia (DC) Follow Up With: Bon,Leslee M, MD [Primary Care Provider] - - Diet and Activity Activity: increase activity as tolerated Diet: advance to your usual diet Interval History: Mr. Webb felt OK overnight. Still having cough. Scant hemoptysis. Ready for discharge. Hospital course: Mr. Webb is a 71 year old male with hx of HTN presented to ED with cough and dyspnea. He was found to have R sided pneumonia and subsequently admitted. He had similar symptoms twice previously and took antibiotics. Mr. Webb was admitted to [facility]. He was placed on abx, IV steroid, aerosols and oxygen. He was having some hemoptysis on admission and this was increased on the second day. He had CT scan showing pneumonia. He was evaluated by pulmonary and continued on current management. He was taking cough suppressants with improvement in his cough. He was able to ambulate in the halls without difficulty. On 12/05/16 he was afebrile. His vitals were good. He was oxygenating well without supplementation. At that time he was felt stable for discharge home. He is to see pulmonary in 2 months and needs repeat CT at that time. If hemoptysis persists he is to follow up with pulmonary in 2 weeks. - Time Spent with Patient Total time spent providing and/or coordinating discharge services: 42min - Constitutional Vitals: Temp Pulse Resp BP Pulse Ox 97.4 F L 54 15 128/77 97 12/04/16 11:00 12/04/16 11:00 12/04/16 11:00 12/04/16 11:00 12/04/16 11:00 General appearance: Present: A&O X 3, pleasant, answers questions appropriately - Head Head exam: Present: normocephalic - Eye Eye exam: Present: EOMI, conjuntiva pink - ENT ENT exam: Present: mucous membranes moist - Respiratory Respiratory exam: Present: decreased breath sounds. Absent: rhonchi, wheezes Additional comments: Still with moist cough at times. - Cardiovascular Cardiovascular exam: Present: RRR. Absent: tachycardia - GI/Abdominal GI/Abdominal exam: Present: soft. Absent: tenderness - Extremities Exam Extremities exam: Present: warm. Absent: pedal edema - Neurological Exam Neurological exam: Present: alert, oriented X3, no focal deficits - Psychiatric Psychiatric exam: Present: normal affect, normal mood - Skin Skin exam: Present: dry, warm. Absent: rash
--- NOTE | 2016-12-04 21:52 | Pulmonology Progress Note ---
Date of Encounter: 12/04/16 Time of Encounter: 07:50 Assessment and Plan (1) Hemoptysis Status: Acute Patient is feeling better and his hemoptysis has improved. I have explained to him he needs CT chest in about 8 weeks and if he has problems before that, then we need to see in the office and I gave him contact number. Subjective Principal diagnosis: Pneumonia and hemoptysis Interval history: Patient feeling better, but still have some hemoptysis Objective PUL Vital signs: Last Vital Signs Temp 97.4 F L 12/04/16 11:00 Pulse 54 12/04/16 11:00 Resp 18 12/04/16 11:47 BP 128/77 12/04/16 11:00 Pulse Ox 96 12/04/16 11:47 General appearance: no acute distress Eyes: nonicteric ENT: oropharynx moist Neck: supple Effort: normal Auscultation: left: clear, right: rhonchi Percussion: bilateral: not dull Cardiovascular: regular rate and rhythm Gastrointestinal: normoactive bowel sounds Extremities: no cyanosis normal mental status, non-focal exam mood appropriate Results - Laboratory Findings CBC and BMP: 12/04/16 05:33 12/04/16 05:33 Abnormal lab findings: Abnormal lab results RBC 4.06 M/mcL (4.19-5.50) L 12/04/16 05:33 Hgb 10.9 g/dL (12.9-16.9) L 12/04/16 05:33 Hct 34.1 % (37.5-50.1) L 12/04/16 05:33 MCH 26.8 pg (28.0-33.3) L 12/04/16 05:33 Immature Gran % 7.0 % (0-4) H 12/03/16 06:01 Band Neutrophils % 29.0 % (0-4) H 12/02/16 06:31 Metamyelocytes % 3.0 % (0) H 12/02/16 06:31 Polychromasia 1+ (Not Present) A 12/03/16 06:01 VBG pH 7.44 pH Units (7.32-7.42) H 12/01/16 05:06 VBG pO2 55 mmHg (25-40) H 12/01/16 05:06 VBG HCO3 27.8 mEq/L (21-27) H 12/01/16 05:06 BUN 28 mg/dL (8-26) H 12/04/16 05:33 BUN/Creatinine Ratio 32 (6-26) H 12/04/16 05:33 Glucose 246 mg/dL (70-99) H 12/04/16 05:33 POC Glucose 200 (58-89) H 12/04/16 07:24 Hemoglobin A1c 5.8 % (-5.6) H 12/01/16 05:06 Calculated Osmolality 302 (280-300) H 12/04/16 05:33 Calcium 8.4 mg/dL (8.6-10.8) L 12/04/16 05:33 AST 37 Units/L (5-34) H 12/02/16 06:31 Albumin 2.6 g/dL (3.5-5.0) L 12/02/16 06:31 Globulin 3.9 g/dL (2.4-3.5) H 12/02/16 06:31 Albumin/Globulin Ratio 0.7 (1.1-2.2) L 12/02/16 06:31 - Microbiology Findings Microbiology Findings: Microbiology, Last 48 Hours 12/01/16 15:00 Sputum Culture - Final Sputum - Clinical Findings Intake & Output: Intake & Output 12/04/16 12/04/16 12/04/16 07:59 15:59 23:59 Intake Total 300 / 300 600 / 600 Output Total 0 / 0 Balance 300 / 300 600 / 600 Weight 103.9 kg Consult Discharge Plan - Plan Instructions: Benzonatate (By mouth), Guaifenesin (By mouth), Levofloxacin (By mouth), Ipratropium/Albuterol (By breathing), Acute Respiratory Distress Syndrome (DC), Diabetes Mellitus Type 2 in Adults (DC), Sepsis (DC), Chronic Hypertension (DC), Pneumonia (DC) Referrals: Leslee Crockett MD [Primary Care Provider] - Prescriptions: Ipratropium/Albuterol Neb [Duoneb] 3 ml IH [id number] #100 inhsol GuaiFENesin/Codeine [ROBITUSSIN w/CODEINE] 10 ml PO Q6HR PRN #200 ml PRN Reason: Cough Benzonatate [Tessalon] 200 mg PO TID PRN #60 capsule PRN Reason: Cough GuaiFENesin ER [Mucinex] 1,200 mg PO BID #120 tbbp.12hr Levofloxacin [Levaquin] 750 mg PO DAILY #5 tablet
== END 2016-12-04 13:58 | disposition home or self-care (01) | DRG 193 ==
LOC: EMEROO 02:33 → 2NENU 02:33
PROVIDERS: ADMIT Internal Medicine; ATTEND Internal Medicine

== ENCOUNTER 2020-10-16 15:10 | Observation (INO) ==
[2020-10-16 16:01] LABS: Basophils % 0.3 %; Eosinophils % 0.5 %; Hematocrit 43.5 % (37.5-50.1); Hemoglobin 14.6 g/dL (12.9-16.9); Immature Granulocytes % 0.2 % (0-4); Immature Platelets 2.5 % (1.1-6.1); Lymphocytes # 0.2 K/mcL (0.6-4.6); Lymphocytes % 3.5 %; Mean Corpuscular HGB Conc 33.6 g/dL (31.6-35.5); Mean Corpuscular Volume 86.3 fL (83.0-100.0); Mean Platelet Volume 9.6 fL (9.4-12.4); Monocytes # 0.3 K/mcL (0.0-1.3); Monocytes % 5.2 %; Neutrophils # 5.2 K/mcL (1.6-8.9); Platelet Count 139 K/mcL (140-400); Red Blood Count 5.04 M/mcL (4.19-5.50); Red Cell Distribution Width 12.6 % (11.5-14.5); Segmented Neutrophils % 90.3 %; White Blood Count 5.8 K/mcL (4.3-11.1)
[2020-10-16 16:07] LABS: Prothrombin Time 11.6 Seconds (9.4-12.1)
[2020-10-16 16:09] LABS: Activated Partial Thrombo Time 22.3 Seconds (26.0-36.0)
[2020-10-16] MEDS ORDERED: Azithromycin 500 MG in 0.9 % Sodium Chloride 250 ML IVPB ONE (16:18)
[2020-10-16] MEDS ORDERED: cefTRIAXone 1,000 MG in 0.9 % Sodium Chloride Mini Bag 100 ML IVPB ONE (16:18)
[2020-10-16] MEDS ORDERED: Ipratropium/Albuterol Neb 3 ML IH ONE (16:18)
[2020-10-16 16:23] LABS: Alanine Aminotransferase 25 Units/L (7-52); Albumin 3.9 g/dL (3.5-5.7); Albumin/Globulin Ratio 1.4 (1.1-2.2); Alkaline Phosphatase 83 Units/L (34-104); Aspartate Amino Transferase 23 Units/L (13-39); BUN/Creatinine Ratio 24 (6-26); Bilirubin,Direct 0.1 mg/dL (0.0-0.2); Bilirubin,Indirect 0.5 mg/dL (0.0-1.0); Bilirubin,Total 0.6 mg/dL (0.3-1.0); Blood Urea Nitrogen 23 mg/dL (8-23); C-Reactive Protein < 5 mg/L (Less than 10); Calcium 9.1 mg/dL (8.6-10.3); Carbon Dioxide 24 mEq/L (23-29); Chloride 103 mEq/L (98-107); Globulin 2.8 g/dL (2.4-3.5); Glucose 107 mg/dL (70-105); Lactate Dehydrogenase 155 Units/L (140-271); Magnesium 1.7 mg/dL (1.6-2.6); Osmolality,Calculated 290 (280-300); Phosphorous 1.4 mg/dL (2.7-4.5); Potassium 3.9 mEq/L (3.5-5.1); Sodium 138 mEq/L (136-145); Total Protein 6.7 g/dL (6.4-8.9); Troponin I < 0.03 ng/mL (< 0.04); eGFR For African Americans > 60 (> 60); eGFR For Non-African Americans > 60 (> 60)
[2020-10-16 16:41] LABS: Ferritin 31 ng/mL (20-250)
[2020-10-16] MEDS ORDERED: Dexamethasone 4 MG/ML VIAL IVP ONE (16:58)
[2020-10-16] MEDS ORDERED: Ondansetron 4 MG/2 ML VIAL IVP PRN (17:07)
[2020-10-16] MEDS ORDERED: Naloxone 0.4 MG/ML INJ IVP PRN (17:07)
[2020-10-16] MEDS ORDERED: Dextrose Gel 15 GM/37.5 ML TUBE PO PRN ×2 (17:12)
[2020-10-16] MEDS ORDERED: D5% in Water 1,000 ML IVC PRN (17:12)
[2020-10-16] MEDS ORDERED: *HR* Dextrose 50 % in Water (Vial) 50 ML VIAL IVP PRN (17:12)
[2020-10-16] MEDS ORDERED: Isovue-370 500 ML BOTTLE IVP ONE (17:44)
[2020-10-16] MEDS ORDERED: diazePAM 5 MG TABLET PO PRN (18:04)
[2020-10-16 19:17] LABS: Adenovirus Not Detected (Not Detect); Bordetella Pertussis Not Detected (Not Detect); Chlamydophila pneumoniae Not Detected (Not Detect); Coronavirus 229E Not Detected (Not Detect); Coronavirus HKU1 Not Detected (Not Detect); Coronavirus NL63 Not Detected (Not Detect); Coronavirus OC43 Not Detected (Not Detect); Human Metapneumovirus Not Detected (Not Detect); Human Rhinovirus/Enterovirus Not Detected (Not Detect); Influenza A Subtype 2009 H1 Not Detected (Not Detect); Influenza B Not Detected (Not Detect); Mycoplasma pneumoniae Not Detected (Not Detect); Parainfluenza Virus 1 Not Detected (Not Detect); Parainfluenza Virus 2 Not Detected (Not Detect); Parainfluenza Virus 3 Not Detected (Not Detect); Parainfluenza Virus 4 Not Detected (Not Detect); Respiratory Syncytial Virus Not Detected (Not Detect); SARS-CoV-2 Not Detected (Not Detect)
[2020-10-16 19:41] LABS: Bacteria,Urine Few per hpf (None-Few); Bilirubin,Urine Negative (Negative); Blood,Urine Negative (Negative); Clarity,Urine Clear (Clear); Color,Urine Yellow (Yellow); Glucose,Urine (UA) Normal (Normal); Hyaline Casts,Urine Few per lpf (None Seen); Ketones,Urine Negative (Negative); Leukocyte Esterase,Urine Negative (Negative); Mucus,Urine Few per lpf (None-Few); Nitrite,Urine Negative (Negative); Protein,Urine 30 mg/dL (Neg-Trace); RBC,Urine 0-3 per hpf (0-3); Specific Gravity,Urine > 1.030 (1.010-1.025); Squamous Epithelial Cell,Urine Few per hpf (None-Few); Urobilinogen,Urine Normal (Normal); WBC,Urine 0-3 per hpf (0-3)
[2020-10-16] MEDS: Ipratropium/Albuterol Neb 3 ML IH SCH (20:00)
[2020-10-16] MEDS: levoFLOXacin 750 MG/150 ML 750 MG/150 ML BAG IVPB SCH (21:29)
[2020-10-16] MEDS: *HR* Heparin 5,000 UNIT/ML VIAL SQ SCH (21:29)
[2020-10-16] MEDS: rOPINIRole 1 MG TABLET PO SCH (21:30)
[2020-10-17] MEDS: Ipratropium/Albuterol Neb 3 ML IH SCH ×7 (00:20→23:23)
[2020-10-17 00:52] LABS: Hematocrit 40.5 % (37.5-50.1); Hemoglobin 13.6 g/dL (12.9-16.9); Immature Granulocytes % 0.3 % (0-4); Lymphocytes # 0.2 K/mcL (0.6-4.6); Lymphocytes % 1.5 %; Mean Corpuscular HGB Conc 33.6 g/dL (31.6-35.5); Mean Corpuscular Hemoglobin 29.6 pg (28.0-33.3); Mean Corpuscular Volume 88.2 fL (83.0-100.0); Monocytes # 0.6 K/mcL (0.0-1.3); Monocytes % 5.9 %; Neutrophils # 9.5 K/mcL (1.6-8.9); Platelet Count 144 K/mcL (140-400); Red Blood Count 4.59 M/mcL (4.19-5.50); Red Cell Distribution Width 12.8 % (11.5-14.5); Segmented Neutrophils % 92.3 %
[2020-10-17 00:53] LABS: White Blood Count 10.3 K/mcL (4.3-11.1)
[2020-10-17 01:10] LABS: BUN/Creatinine Ratio 23 (6-26); Blood Urea Nitrogen 24 mg/dL (8-23); Calcium 8.8 mg/dL (8.6-10.3); Carbon Dioxide 23 mEq/L (23-29); Chloride 100 mEq/L (98-107); Glucose 195 mg/dL (70-105); Magnesium 1.8 mg/dL (1.6-2.6); Osmolality,Calculated 287 (280-300); Phosphorous 2.1 mg/dL (2.7-4.5); Potassium 4.1 mEq/L (3.5-5.1); Sodium 134 mEq/L (136-145); eGFR For African Americans > 60 (> 60); eGFR For Non-African Americans > 60 (> 60)
[2020-10-17] MEDS ORDERED: traZODone 50 MG TABLET PO ONE (01:51)
[2020-10-17] MEDS: *HR* Heparin 5,000 UNIT/ML VIAL SQ SCH ×2 (05:38→17:44)
[2020-10-17] MEDS ORDERED: Insulin LISPRO 300 UNITS/3 ML VIAL SUBQ SCH ×2 (07:30→21:00)
[2020-10-17] MEDS: atenoloL 50 MG TABLET PO SCH (07:36)
[2020-10-17] MEDS: Multivit/Ca/Min/Fe/FA 1 TAB TABLET PO SCH (07:37)
[2020-10-17] MEDS: Finasteride 5 MG TABLET PO SCH (07:37)
[2020-10-17] MEDS: Aspirin 81 MG TAB.CHEW PO SCH (07:39)
[2020-10-17] MEDS: Insulin LISPRO 300 UNITS/3 ML VIAL SUBQ SCH ×3 (07:40→16:50)
[2020-10-17] MEDS: Artificial Tears SOLN 15 ML BOTTLE BOTH EYES SCH ×2 (16:44→20:14)
[2020-10-17] MEDS: levoFLOXacin 750 MG/150 ML 750 MG/150 ML BAG IVPB SCH (17:45)
[2020-10-17] MEDS: rOPINIRole 1 MG TABLET PO SCH (20:15)
[2020-10-18 01:12] LABS: Basophils % 0.2 %; Hematocrit 41.5 % (37.5-50.1); Hemoglobin 13.9 g/dL (12.9-16.9); Immature Granulocytes % 0.4 % (0-4); Lymphocytes # 0.6 K/mcL (0.6-4.6); Lymphocytes % 5.3 %; Mean Corpuscular HGB Conc 33.5 g/dL (31.6-35.5); Mean Corpuscular Hemoglobin 29.6 pg (28.0-33.3); Mean Corpuscular Volume 88.5 fL (83.0-100.0); Mean Platelet Volume 10.1 fL (9.4-12.4); Monocytes # 0.6 K/mcL (0.0-1.3); Monocytes % 5.2 %; Neutrophils # 10.1 K/mcL (1.6-8.9); Platelet Count 135 K/mcL (140-400); Red Blood Count 4.69 M/mcL (4.19-5.50); Red Cell Distribution Width 13.1 % (11.5-14.5); Segmented Neutrophils % 88.9 %; White Blood Count 11.4 K/mcL (4.3-11.1)
[2020-10-18 01:32] LABS: BUN/Creatinine Ratio 25 (6-26); Blood Urea Nitrogen 28 mg/dL (8-23); Calcium 9.5 mg/dL (8.6-10.3); Carbon Dioxide 23 mEq/L (23-29); Chloride 103 mEq/L (98-107); Glucose 102 mg/dL (70-105); Osmolality,Calculated 288 (280-300); Sodium 136 mEq/L (136-145); eGFR For African Americans > 60 (> 60); eGFR For Non-African Americans > 60 (> 60)
[2020-10-18] MEDS: Ipratropium/Albuterol Neb 3 ML IH SCH ×3 (03:21→11:26)
[2020-10-18] MEDS ORDERED: hydrALAZINE 25 MG TABLET PO ONE (03:35)
[2020-10-18] MEDS: *HR* Heparin 5,000 UNIT/ML VIAL SQ SCH (05:56)
[2020-10-18] MEDS: Insulin LISPRO 300 UNITS/3 ML VIAL SUBQ SCH ×2 (07:16→12:40)
[2020-10-18] MEDS: Artificial Tears SOLN 15 ML BOTTLE BOTH EYES SCH ×2 (07:46→12:40)
[2020-10-18] MEDS: Aspirin 81 MG TAB.CHEW PO SCH (07:47)
[2020-10-18] MEDS: Finasteride 5 MG TABLET PO SCH (07:47)
[2020-10-18] MEDS: Multivit/Ca/Min/Fe/FA 1 TAB TABLET PO SCH (07:47)
[2020-10-18] MEDS: atenoloL 50 MG TABLET PO SCH (07:47)
[2020-10-18] MEDS ORDERED: amLODIPine 5 MG TABLET PO SCH (09:00)
[2020-10-18 11:35] LABS: ABG Base Excess 1 mEq/L (-2 to 3); ABG HCO3 25 mEq/L (21-27); ABG Oxygen Saturation 89 % (95-98); ABG PCO2 38 mmHg (35-45); ABG PH 7.43 pH Units (7.32-7.45); ABG PO2 55 mmHg (85-104); ABG TCO2 26 mEq/L (20-26)
[2020-10-18 12:39] VITALS: BP 155/75
[2020-10-18] MEDS ORDERED: Gabapentin 300 MG CAPSULE PO SCH (21:00)
[2020-10-18] MEDS ORDERED: traZODone 50 MG TABLET PO SCH (21:00)
[2020-10-18] MEDS ORDERED: Spironolactone 25 MG TABLET PO SCH (21:00)
== END 2020-10-18 15:38 | disposition home or self-care (01) ==
LOC: 3BNU 15:10 → EMEROOARM 15:10 → SUATTDRO 18:29 → 3BNU 20:05
PROVIDERS: ADMIT Internal Medicine; ATTEND Internal Medicine